=== PATIENT | female | born 1955 | race Caucasian/White ===

== ENCOUNTER 2020-03-23 20:41 | Inpatient (IN) | payer OTHER ==
[~2020-03-23 20:41] MED LIST: BACTRIM DS TAB1 EACH PO; CLARITIN10 MG PO; FOLIC ACID1 MG PO; METFORMIN HCL500 MG PO; MOTRIN600 MG PO
[2020-03-23 21:43] LABS: BASOPHIL 0.5 % (0-2); EOSINOPHIL 0.1 % (0-5); HCT 51.6 % (37.0-47.0); HGB 16.8 g/dl (12.5-16.0); LYMPHOCYTE 8.7 % (15-48); MCH 29.7 pg (25.0-31.0); MCHC 32.6 g/dL (32.0-36.0); MCV 91.2 fL (78.0-100.0); MONOCYTE 4.9 % (0-12); MPV 10.2 fL (6.0-9.5); NRBC 0; PLT 293 K/uL (150-400); RBC 5.66 M/uL (4.20-5.40); RDW 12.5 % (11.5-14.0); WBC 13.2 K/uL (4.0-10.5)
[2020-03-23 21:58] LABS: BUN/CREAT RATIO (CALC) 37.5 RATIO; CREATININE 0.48 mg/dL (0.51-0.95); POTASSIUM 4.3 mmol/L (3.5-5.1)
[2020-03-23 22:06] LABS: LACTIC ACID 2.5 mmol/L (0.4-1.9)
[2020-03-23 22:23] LABS: CORONAVIRUS 2019 SARS-COV-2 NEGATIVE (NEGATIVE); INFLUENZA A NAA NEGATIVE (NEGATIVE)
[2020-03-23 22:33] LABS: ALBUMIN 2.6 g/dL (3.4-5.0); BILIRUBIN - DIRECT 0.1 mg/dL (0.00-0.20); BILIRUBIN - TOTAL 0.3 mg/dL (0.2-1.0); C-REACTIVE PROTEIN 1.4 mg/dL (<=0.90); GLOBULIN (CALCULATION) 3.9 g/dL; TOTAL PROTEIN 6.5 g/dL (6.4-8.2)
[2020-03-23 23:46] LABS: BILIRUBIN 1+ mg/dL (NEGATIVE); BLOOD 2+ Ery/uL (NEGATIVE); CLARITY CLEAR (CLEAR); COLOR YELLOW (YELLOW); GLUCOSE (U) 3+ mg/dL (NORMAL); LEUKOCYTES NEGATIVE Leu/uL (NEGATIVE); NITRITE NEGATIVE (NEGATIVE); PROTEIN 3+ mg/dL (NEGATIVE); SPECIFIC GRAVITY >=1.030 (1.001-1.030); UROBILINOGEN 0.2 mg/dL (0.2-1.0); pH 5.5 (5.0-9.0)
[2020-03-23 23:52] LABS: BACTERIA TRACE
[2020-03-24] MEDS ORDERED: JARDIANCE10 MG PO (03:29)
[2020-03-24 05:53] LABS: BASOPHIL 0.2 % (0-2); EOSINOPHIL 0 % (0-5); HCT 48.4 % (37.0-47.0); HGB 15.6 g/dl (12.5-16.0); LYMPHOCYTE 5.9 % (15-48); MCH 29.3 pg (25.0-31.0); MCHC 32.2 g/dL (32.0-36.0); MCV 90.8 fL (78.0-100.0); MONOCYTE 0.8 % (0-12); NRBC 0; PLT 273 K/uL (150-400); RBC 5.33 M/uL (4.20-5.40); RDW 12.7 % (11.5-14.0); WBC 11.9 K/uL (4.0-10.5)
[2020-03-24 05:57] LABS: NEUTROPHIL 92.5 % (41-80)
[2020-03-24 06:22] LABS: ALBUMIN 2.3 g/dL (3.4-5.0); BILIRUBIN - TOTAL 0.3 mg/dL (0.2-1.0); BUN/CREAT RATIO (CALC) 43.5 RATIO; C-REACTIVE PROTEIN 1.5 mg/dL (<=0.90); CREATININE 0.46 mg/dL (0.51-0.95); GLOBULIN (CALCULATION) 3.7 g/dL; POTASSIUM 3.8 mmol/L (3.5-5.1)
--- NOTE | 2020-03-24 12:07 | NUR ---
PT REPORTS SHE IS INDEPENDENT WITH ADL'S SHE REPORTS SHE LIVES WITH HER S/O; PLEASE ADVISE OF ANY DISCHARGE NEEDS
[2020-03-26 06:49] LABS: BASOPHIL 0.1 % (0-2); EOSINOPHIL 0 % (0-5); HCT 48.1 % (37.0-47.0); HGB 15.8 g/dl (12.5-16.0); LYMPHOCYTE 10.3 % (15-48); MCH 29.5 pg (25.0-31.0); MCHC 32.8 g/dL (32.0-36.0); MCV 89.9 fL (78.0-100.0); MONOCYTE 3.4 % (0-12); MPV 10.5 fL (6.0-9.5); NEUTROPHIL 85.4 % (41-80); NRBC 0; PLT 292 K/uL (150-400); RBC 5.35 M/uL (4.20-5.40); RDW 12.6 % (11.5-14.0); WBC 10.4 K/uL (4.0-10.5)
[2020-03-26 07:08] LABS: BUN/CREAT RATIO (CALC) 48.8 RATIO; CREATININE 0.43 mg/dL (0.51-0.95); POTASSIUM 4.6 mmol/L (3.5-5.1)
[2020-03-27 06:44] LABS: BASOPHIL 0.2 % (0-2); EOSINOPHIL 0.7 % (0-5); HCT 47.7 % (37.0-47.0); HGB 15.6 g/dl (12.5-16.0); LYMPHOCYTE 32.1 % (15-48); MCH 29.3 pg (25.0-31.0); MCHC 32.7 g/dL (32.0-36.0); MCV 89.7 fL (78.0-100.0); MONOCYTE 9.7 % (0-12); MPV 10.1 fL (6.0-9.5); NEUTROPHIL 56.9 % (41-80); NRBC 0; PLT 270 K/uL (150-400); RBC 5.32 M/uL (4.20-5.40); RDW 12.4 % (11.5-14.0); WBC 10.5 K/uL (4.0-10.5)
[2020-03-27 06:55] LABS: INR 1.05 (0.9-1.2); PTT 29.7 SECONDS (22.2-34.7)
[2020-03-27 07:06] LABS: IRON % SATURATION 58.3 %SAT (20-50)
[2020-03-27 07:29] LABS: CREATININE 0.48 mg/dL (0.51-0.95); FOLIC ACID (SERUM) 14.8 ng/mL (8.6-58.9); MAGNESIUM 2.1 mg/dL (1.8-2.4); POTASSIUM 3.7 mmol/L (3.5-5.1)
[2020-03-28 11:01] LABS: ALBUMIN 1.9 g/dL (3.4-5.0); BILIRUBIN - DIRECT 0.1 mg/dL (0.00-0.20); BILIRUBIN - TOTAL 0.3 mg/dL (0.2-1.0); FT4 (FREE T4) 1.2 ng/dL (0.76-1.46); TOTAL PROTEIN 4.9 g/dL (6.4-8.2)
--- NOTE | 2020-03-28 12:47 | NUR ---
ELIQUIS 5MG 2X ADAY CALLED INTO [facility] 30 DAY SUPPLY IS ZERO COPAY
--- NOTE | 2020-03-28 20:04 | NUR ---
PT WAS IN AFIB WHEN FIRST COMING ON SHIFT PATIENT HAD FARHEEN GIVEN 30MG OF PO CARDIZEM AT 0530 AT 0730 PATIENT WAS STILL IN AFIB WITH A RATE OF 160'S CALLED AND GOT AN ORDER FOR 5MG IVP OF LOPRESSOR WHEN COMING TO THE DESK TO CALL TO HAVE THE PHARMACY VERIFY THE DRUG WHEN LOOKING AT THE MONITOR PT HAD CONVERTED BACK TO NORMAL SINUS RHYTHM. LOPRESSOR WAS HELD DR. MEZA WAS NOTIFED CARDIOLOGY CONSULT WAS PLACED
[2020-03-30 05:52] LABS: BASOPHIL 0.4 % (0-2); EOSINOPHIL 3.4 % (0-7); HCT 44.1 % (37.0-47.0); HGB 14.6 g/dl (12.5-16.0); LYMPHOCYTE 24.3 % (15-48); MCH 30.2 pg (25.0-31.0); MCHC 33.1 g/dL (32.0-36.0); MCV 91.1 fL (78.0-100.0); MONOCYTE 5.7 % (0-12); MPV 10.4 fL (6.0-9.5); NEUTROPHIL 64.5 % (41-80); NRBC 0; PLT 227 K/uL (150-400); RBC 4.84 M/uL (4.20-5.40); RDW 12.7 % (11.5-14.0); WBC 10.4 K/uL (4.0-10.5)
[2020-03-30 06:20] LABS: BUN/CREAT RATIO (CALC) 33.3 RATIO; CREATININE 0.51 mg/dL (0.51-0.95); MAGNESIUM 1.7 mg/dL (1.8-2.4); PHOSPHORUS 3.8 mg/dL (2.6-4.7); POTASSIUM 4.5 mmol/L (3.5-5.1)
--- NOTE | 2020-03-30 10:30 | NUR ---
03/30 Ms. Bhandari and her boyfriend share a home together. She has a cane and 3in1. A referral was made to [facility] for a rw. A referral was made to [facility] per patient choice; affliation explained. - Report given to MS OFELIA Ying.
[2020-03-30] MEDS ORDERED: PRINIVIL10 MG PO (10:59)
[2020-03-30] MEDS ORDERED: LIPITOR40 MG PO (10:59)
[2020-03-30] MEDS ORDERED: ASPIRIN EC81 MG PO (10:59)
[2020-03-30] MEDS ORDERED: DUONEB 2.5-0.5M1 AMP INH (10:59)
[2020-03-30] MEDS ORDERED: NORVASC5 MG PO (10:59)
[2020-03-30] MEDS ORDERED: DULERA 200 MCG8.8 GM INH (10:59)
[2020-03-30] MEDS ORDERED: AMIODARONE HCL200 MG PO (10:59)
[2020-03-30] MEDS ORDERED: ELIQUIS5 MG PO (10:59)
--- NOTE | 2020-03-30 14:44 | NUR ---
03/31/20 Ms. Bhandari was educated to the SSD application process.
== END 2020-03-30 15:10 | disposition home health service (06) | DRG 64 ==
LOC: FER 20:41 → FMS 03-24 01:28
PROVIDERS: Emergency Medicine Emergency Medical Services; Internal Medicine; Nurse Practitioner; Nurse Practitioner Family; ADMIT Internal Medicine
DX: I63.9 Cerebral infarction, unspecified (principal); J96.02 Acute respiratory failure with hypercapnia; J44.1 Chronic obstructive pulmonary disease with (acute) exacerbation; J44.0 Chronic obstructive pulmonary disease with (acute) lower respiratory infection; E87.1 Hypo-osmolality and hyponatremia; J20.9 Acute bronchitis, unspecified; I48.0 Paroxysmal atrial fibrillation; E11.9 Type 2 diabetes mellitus without complications; Z20.822 Contact with and (suspected) exposure to COVID-19; K21.9 Gastro-esophageal reflux disease without esophagitis; M19.90 Unspecified osteoarthritis, unspecified site; F17.200 Nicotine dependence, unspecified, uncomplicated; K52.9 Noninfective gastroenteritis and colitis, unspecified; K59.00 Constipation, unspecified; Z98.51 Tubal ligation status
CPT/HCPCS: 36415; 36600; 70450; 70544; 70548; 70551; 71045; 71250; 80048; 80053; 80061; 80076; 81001; 82607; 82728; 82746; 82803; 82962; 83540; 83550; 83605; 83615; 83735; 84100; 84145; 84439; 84443; 84484; 85025; 85379; 85610; 85730; 86140; 87040; 92507; 92523; 93005; 94640; 94760; 94762; 97116; 97163; 97166; 97530-GP; 97535; A9579; G0378; J0780; J1200; J1650; J1720; J1885; J1956; J2405; J2930; J7030; U0002